=== PATIENT | male | born 1945 | race Caucasian/White ===

== ENCOUNTER 2021-09-16 23:07 | Emergency (ER) | payer MEDICARE, OTHER ==
[2021-09-16 23:20] VITALS: O2SAT 94
--- NOTE | 2021-09-17 00:20 | ERPHSYRPT ---
- History of Present Illness Time Seen by Provider: 09/16/21 23:30 Source: patient Exam Limitations: no limitations Patient Subjective Stated Complaint: had 7 teeth pulled a week and a half ago, one started bleeding tonight and won't quit. Triage Nursing Assessment: pt had 7 teeth pulled about a week and a half ago. Tonight the top right area started bleeding around 1730 and he can't get it to quit completely. Physician History: This is a 76-year-old white male patient on Eliquis who underwent dental procedure which involved teeth extraction. Patient restarted his Eliquis the day after his procedure. He was instructed to do so. The procedure was performed approximately 9 days ago. Today, the extracted teeth sites at the incisor region on the right of midline, upper gingival area started to bleed and he could not get it stopped. Timing/Duration: gradual onset Severity: moderate ENT Location: dental (Interval bleeding) Prearrival Treatment: no prearrival treatment Associated Symptoms: denies symptoms Allergies/Adverse Reactions: No Known Drug Allergies Allergy (Unverified 09/16/21 23:22) Home Medications: Apixaban [Eliquis 5 mg Tablet] 5 mg PO BID 09/16/21 [History] Hx Tetanus, Diphtheria Vaccination/Date Given: No Hx Influenza Vaccination/Date Given: No Hx Pneumococcal Vaccination/Date Given: No Immunizations Up to Date: No Travel Risk - International Travel Have you traveled outside of the country in past 3 weeks: No - Coronavirus Screening Are you exhibiting any of the following symptoms?: No Close contact with a COVID-19 positive Pt in past 14-21 Days: No - Vaccine Status Have you recieved a Covid-19 vaccination: Yes [employer] History Professor: Moderna - Vaccination Dates Date of 2cond Vaccination (if applicable): . Dates if Unknown: . - Review of Systems Constitutional: No Symptoms Eyes: No Symptoms Ears, Nose, & Throat: Other (Bleeding from teeth extraction sites right incisors upper location) Respiratory: No Symptoms Cardiac: No Symptoms Abdominal/Gastrointestinal: No Symptoms Genitourinary Symptoms: No Symptoms Musculoskeletal: No Symptoms Skin: No Symptoms Neurological: No Symptoms Psychological: No Symptoms Endocrine: No Symptoms Hematologic/Lymphatic: No Symptoms Immunological/Allergic: No Symptoms All Other Systems: Reviewed and Negative - Past Medical History Pertinent Past Medical History: Yes Neurological History: No Pertinent History ENT History: No Pertinent History Cardiac History: Arrhythmia, High Cholesterol Respiratory History: No Pertinent History Endocrine Medical History: No Pertinent History Musculoskeletal History: Arthritis GI Medical History: Hernia History: No Pertinent History Psycho-Social History: No Pertinent History Male Reproductive Disorders: No Pertinent History - Past Surgical History Past Surgical History: Yes Neuro Surgical History: No Pertinent History Cardiac: Cardiac Catheterization, Other Respiratory: No Pertinent History Gastrointestinal: Hernia Repair Genitourinary: No Pertinent History Musculoskeletal: No Pertinent History Male Surgical History: No Pertinent History Other Surgical History: heart ablation - Social History Smoking Status: Never smoker Exposure to second hand smoke: No Drug Use: none Patient Lives Alone: Yes - Nursing Vital Signs Nursing Vital Signs: Initial Vital Signs Temperature 98.0 F 09/16/21 23:07 Pulse Rate 62 09/16/21 23:07 Respiratory Rate 20 09/16/21 23:07 Blood Pressure 169/92 09/16/21 23:07 O2 Sat by Pulse Oximetry 94 L 09/16/21 23:07 Pain Scale Pain Intensity 0 - Physical Exam General Appearance: no apparent distress, alert, anxiety Eye Exam: bilateral eye: normal inspection, PERRL, EOMI Ear Exam: bilateral ear: auricle normal Nasal Exam: normal inspection Throat Exam: pharynx normal (Mild, slow ooze from upper incisor tooth extraction site. 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 Counseled pt/family regarding: diagnosis - Departure Departure Disposition: Home Clinical Impression: Gingival bleeding Condition: Stable Critical Care Time: No Referrals: FREDO FOSTER MD [Primary Care Provider] - Follow up/PCP as directed Additional Instructions: Stop your Eliquis and any other anticoagulation medication. Use the Surgicel gauze directly on the gingival site then compressed with a folded gauze as discussed and as taught you how to do. Call your dentist tomorrow for further management. Drink plenty of cool liquids.
[2021-09-17 00:37] VITALS: BP 154/87; PULSE 60
== END 2021-09-17 00:42 | disposition home or self-care (01) ==
LOC: ED 23:07
DX: K06.8 Other specified disorders of gingiva and edentulous alveolar ridge (principal); Z79.01 Long term (current) use of anticoagulants; E78.5 Hyperlipidemia, unspecified
CPT/HCPCS: 99283